=== PATIENT | male | born 1970 | race Caucasian/White ===

== ENCOUNTER 2023-05-01 10:59 | Emergency (ER) | payer OTHER ==
[2023-05-01 11:08] VITALS: BP 125/85; PULSE 93; RESP 18; TEMP 98.4; BMI 26.6
[2023-05-01] MEDS ORDERED: CLINDAMYCIN HCL 150 MG CAPSULE (FP) PO ONE (11:50)
[2023-05-01] MEDS ORDERED: CLINDAMYCIN HCL 150 MG CAPSULE (FP) ONE (11:52)
== END 2023-05-01 12:05 | disposition home or self-care (01) ==
LOC: FER 10:59
PROC: 0H9CXZZ Drainage of Left Upper Arm Skin, External Approach (ICD-10-PCS; principal; 2023-05-01)
DX: L02.412 Cutaneous abscess of left axilla (principal)
CPT/HCPCS: 99283-25